=== PATIENT | female | born 1990 | race Two or more races ===

== ENCOUNTER 2018-03-23 15:49 | Outpatient (CLI) | payer OTHER ==
--- NOTE | 2018-03-23 17:46 | Ultrasound Report ---
Procedure Date: 03/23/2018 Accession Number: [id number] / [id number] Procedure: US - OB First Trimester CPT Code: FULL RESULT: EXAM: FIRST TRIMESTER OBSTETRIC ULTRASOUND (Less than 11 weeks) EXAM DATE: 03/23/2018 04:16 PM. CLINICAL HISTORY: POSSIBLE MISSED AB. No heart tones in clinic. LMP: 01/12/2018. COMPARISONS: None. TECHNIQUE: Transabdominal and transvaginal ultrasound examination with static image documentation. CLINICAL DATES: EGA 10 weeks 0 days with DALIA 10/19/2018 based on LMP. ASSESSMENT: Gestational Sac: Single intrauterine. Mean gestational sac diameter: 36 mm = 8 weeks 5 days. Irregular in shape. Embryo: CRL (crown-rump length) 21.3 mm = 8 weeks 5 days. Cardiac activity: Absent . Yolk sac: 3 mm. Amniotic fluid: Not accurately assessed at this gestational age. Early placenta: Not visible at this gestational age. Other: No perigestational fluid collection demonstrated. MATERNAL STRUCTURES: Uterus: Anteverted. Unremarkable. Cervix: Closed. Right Ovary/Adnexa: Unremarkable. The ovary measures 2.5 x 1.4 x 2.0 cm, volume 3.7 cc. Left Ovary/Adnexa: Unremarkable. The ovary measures 2.9 x 2.2 x 1.9 cm, volume 6.3 cc. Free Fluid: None. Other: None. IMPRESSION: 1. Absent cardiac activity consistent with blighted ovum. Based on crown-rump length, ultrasound age 8 weeks 5 days. GERALD The call report notification system was initiated by Dr. Eduardo Allen at 17:04 hrs on 03/23/18. The above findings were discussed with Dr. Janet Dr by Dr. Eduardo Allen at 17:45 hrs on 03/23/18.
== END 2018-03-23 15:50 | disposition home or self-care (01) ==
LOC: DI 15:49
PROVIDERS: ATTEND Obstetrics & Gynecology
DX: Z36.9 Encounter for antenatal screening, unspecified (principal)
CPT/HCPCS: 76801; 76817

== ENCOUNTER 2018-03-24 11:10 | Outpatient (CLI) | payer OTHER ==
[2018-03-24 11:38] LABS: BASOPHILS % (AUTO) 0.5 %; EOSINOPHILS # (AUTO) 0.2 10^3/uL (0.0-0.7); EOSINOPHILS % (AUTO) 3.3 %; HGB - HEMOGLOBIN 12.6 g/dL (12.0-16.0); LYMPHOCYTES # (AUTO) 2.8 10^3/uL (1.5-3.5); LYMPHOCYTES % (AUTO) 39.6 %; MEAN CORPUSCULAR HEMOGLOBIN 30.3 pg (27.0-31.0); MEAN CORPUSCULAR HGB CONC 34.3 g/dL (32.0-36.0); MEAN CORPUSCULAR VOLUME 88.4 fL (81.0-99.0); MEAN PLATELET VOLUME 7.4 fL (7.9-10.8); MONOCYTES # (AUTO) 0.4 10^3/uL (0.0-1.0); MONOCYTES % (AUTO) 5.1 %; NEUTROPHILS # (AUTO) 3.6 10^3/uL (1.5-6.6); NEUTROPHILS % (AUTO) 51.5 %; PLT - PLATELET COUNT 270 10^3/uL (130-450); RED BLOOD COUNT 4.15 10^6/uL (4.20-5.40); RED CELL DISTRIBUTION WIDTH 12.9 % (12.0-15.0); WHITE BLOOD COUNT 7.1 x10^3/uL (4.8-10.8)
[2018-03-24 11:42] LABS: BILIRUBIN,URINE NEGATIVE (NEGATIVE); GLUCOSE, URINE (UA) NEGATIVE (NEGATIVE); KETONES,URINE (UA) NEGATIVE (NEGATIVE); LEUKOCYTE ESTERASE, URINE NEGATIVE (NEGATIVE); NITRITE,URINE NEGATIVE (NEGATIVE); OCCULT BLOOD,URINE NEGATIVE (NEGATIVE); PROTEIN,URINE NEGATIVE (NEGATIVE); UROBILINOGEN,URINE 0.2 (NORMAL) E.U./dL (NORMAL)
[2018-03-24 11:53] LABS: CLARITY,URINE CLEAR (CLEAR)
== END 2018-03-24 11:11 | disposition home or self-care (01) ==
LOC: LAB 11:10
PROVIDERS: ATTEND Obstetrics & Gynecology
DX: Z01.812 Encounter for preprocedural laboratory examination (principal); O02.1 Missed abortion
CPT/HCPCS: 36415; 81003; 85025; 86850; 86900; 86901

== ENCOUNTER 2018-03-25 11:48 | Day surgery (SDC) | payer OTHER ==
[2018-03-25] MEDS ORDERED: LACTATED RINGERS 1,000 ML IV ONE (12:15)
[2018-03-25] MEDS ORDERED: SCOPOLAMINE PATCH TOP ONE (12:42)
[2018-03-25] MEDS ORDERED: KETOROLAC 30 MG/ML VIAL IVP ONE (13:52)
[2018-03-25] MEDS ORDERED: DEXAMETHASONE 4 MG/ML VIAL IVP ONE (13:52)
[2018-03-25] MEDS ORDERED: PROPOFOL 200 MG/20 ML VIAL IVP ONE (13:52)
[2018-03-25] MEDS ORDERED: ONDANSETRON 4 MG/2 ML VIAL IVP ONE (13:52)
[2018-03-25] MEDS ORDERED: MIDAZOLAM 2 MG/2 ML VIAL IVP ONE (13:52)
[2018-03-25] MEDS ORDERED: fentaNYL 100 MCG/2 ML VIAL IVP ONE (13:52)
--- NOTE | 2018-03-25 14:31 | OPERATIVE REPORT ---
Operative Report - General Procedure Date: 03/25/18 Pre-Op Diagnosis: Missed at 9 weeks gestation Procedure Performed: Dilatation and curettage with suction Post Op Diagnosis: Same as above, await pathology report - Procedure Note Primary Surgeon: Darien Gonzales MD, FACOG Anesthesia Technique: General ET tube Pathology: Curettage specimen sent to pathology Estimated Blood Loss (mL): 150 Drain/Tube Type: Other (None) Complications: None.
[2018-03-25 15:19] VITALS: BP 100/55
--- NOTE | 2018-03-25 19:56 | OPERATIVE REPORT ---
DATE OF SERVICE: 03/25/2018 Physician: Darien Gonzales MD PREOPERATIVE DIAGNOSIS: Missed at 9 weeks' gestation. POSTOPERATIVE DIAGNOSIS: Missed at 9 weeks' gestation. Await pathology report. PROCEDURE PERFORMED: Dilatation and curettage with suction. SURGEON: Darien Gonzales MD, FACOG ANESTHESIA: Che Santamaria, certified nurse ent nurse. ANESTHESIA TYPE: General, ET tube placed. ESTIMATED BLOOD LOSS: 150. COMPLICATIONS: None. DRAINS: None. INTRAVENOUS FLUIDS: 500 or less. URINE OUTPUT: The patient voided prior to procedure, none. FINDINGS: Uterus is consistent with 8 weeks' gestation and boggy. There are no adnexal masses. Cervix is closed. TECHNIQUE: Prior to the procedure, I met the patient and her and explained the mechanics of D and C as well as its risks and benefits. The risks include blood loss, transfusion, infection, perforation, scar tissue (Asherman syndrome), and anesthesia reaction. The patient was brought to the OR and placed on the operating table in a supine position. She was then uneventfully induced and intubated. She was moved into a low dorsal lithotomy position on Sean stirrups. She was prepped and draped in a customary sterile fashion. A timeout briefing done per protocol. A weighted speculum was placed in the posterior vagina. The cervix was grasped with a single-tooth tenaculum. The cervical os was stiff and probe measured the depth at 8-9 cm. We began dilating the cervix with a serial application of Hegar probes to Hegar size 9. The cervical tissue was very stiff. We used 2 single-tooth tenaculums to study the cervix during this process. A medium size curette was introduced and a small amount of conceptual products were harvested. Some of these products did fall into the catch bucket and may have been lost. Next, a #9 suction curette was introduced into the cavity and manipulated in an appropriate manner suction applied. It was manipulated in a systematic fashion. At one point, there was a gush of fluid assumed to be the gestational sac passing. After suction curetting, sharp curette was reintroduced in all 4 quadrants, curetted and uterine cry was confirmed. At this point, the procedure was terminated. At the single-tooth tenaculum insertion points, there was a small defect (0.5 cm) which was closed with interrupted stitches 3-0. The uterine cavity was then packed with iodoform gauze. All sponge, needle and instrument counts were confirmed as correct. The patient was uneventfully awakened from general anesthesia and taken to the recovery room in a stable condition. The patient was discharged later in the day. Warning sign and callback instructions were reviewed. The patient was warned that there was not as much conceptual products as expected for a 9-week gestation and she may expel some in the near future. She is instructed to come back to the clinic in 1 week for reevaluation and review of pathology. TD: 03/25/2018 14:59 BASIA
== END 2018-03-25 11:49 | disposition home or self-care (01) ==
LOC: SDS 11:48
PROVIDERS: ATTEND Obstetrics & Gynecology
PROC: 10D17ZZ Extraction of Products of Conception, Retained, Via Natural or Artificial Opening (ICD-10-PCS; principal; 2018-03-25 13:00)
DX: O02.1 Missed abortion (principal)
CPT/HCPCS: 59820; J3490; J7120

== ENCOUNTER 2018-11-09 10:48 | Outpatient (CLI) | payer OTHER ==
[2018-11-09 17:01] LABS: MUDS CUTOFF CONCENTRATIONS CUTOFF CONC BELOW:
[2018-11-09 17:31] LABS: AMPHETAMINE SCREEN,URINE NEGATIVE (NEGATIVE); BENZODIAZEPINES SCREEN, URINE NEGATIVE (NEGATIVE); COCAINE SCREEN URINE NEGATIVE (NEGATIVE); METHADONE SCREEN, URINE NEGATIVE (NEGATIVE); METHAMPHETAMINES SCREEN, URINE NEGATIVE (NEGATIVE); OPIATE SCREEN, URINE NEGATIVE (NEGATIVE); OXYCODONE SCREEN, URINE NEGATIVE (NEGATIVE); PROPOXYPHENE SCREEN, URINE NEGATIVE (NEGATIVE); TRICYCLIC ANTIDEPRESSANT,URINE NEGATIVE (NEGATIVE)
== END 2018-11-09 23:59 | disposition home or self-care (01) ==
LOC: LAB.R 10:48
PROVIDERS: ATTEND Nurse Practitioner Obstetrics & Gynecology
DX: Z36.9 Encounter for antenatal screening, unspecified (principal); Z11.3 Encounter for screening for infections with a predominantly sexual mode of transmission
CPT/HCPCS: 80306; 87491; 87591

== ENCOUNTER 2018-11-09 10:55 | Outpatient (CLI) | payer OTHER ==
[2018-11-09 11:28] LABS: BASOPHILS % (AUTO) 0.5 %; EOSINOPHILS # (AUTO) 0.2 10^3/uL (0.0-0.7); EOSINOPHILS % (AUTO) 1.6 %; HGB - HEMOGLOBIN 12.4 g/dL (12.0-16.0); LYMPHOCYTES # (AUTO) 3.7 10^3/uL (1.5-3.5); LYMPHOCYTES % (AUTO) 39.3 %; MEAN CORPUSCULAR HEMOGLOBIN 28.6 pg (27.0-31.0); MEAN CORPUSCULAR HGB CONC 33.6 g/dL (32.0-36.0); MEAN CORPUSCULAR VOLUME 85.1 fL (81.0-99.0); MEAN PLATELET VOLUME 7.6 fL (7.9-10.8); MONOCYTES # (AUTO) 0.5 10^3/uL (0.0-1.0); MONOCYTES % (AUTO) 5.6 %; PLT - PLATELET COUNT 291 10^3/uL (130-450); RED BLOOD COUNT 4.34 10^6/uL (4.20-5.40); RED CELL DISTRIBUTION WIDTH 13.7 % (12.0-15.0); WHITE BLOOD COUNT 9.5 x10^3/uL (4.8-10.8)
[2018-11-09 11:28] LABS: BILIRUBIN,URINE NEGATIVE (NEGATIVE); GLUCOSE, URINE (UA) NEGATIVE (NEGATIVE); KETONES,URINE (UA) NEGATIVE (NEGATIVE); LEUKOCYTE ESTERASE, URINE NEGATIVE (NEGATIVE); NITRITE,URINE NEGATIVE (NEGATIVE); OCCULT BLOOD,URINE NEGATIVE (NEGATIVE); PROTEIN,URINE NEGATIVE (NEGATIVE); UROBILINOGEN,URINE 0.2 (NORMAL) E.U./dL (NORMAL)
[2018-11-09 11:38] LABS: CREATININE 0.7 mg/dL (0.4-1.0); URIC ACID 5.2 mg/dL (2.6-7.2)
[2018-11-09 11:40] LABS: BACTERIA,URINE Rare /HPF (None Seen); CLARITY,URINE HAZY (CLEAR); MUCUS,URINE Few Strands; RBC,URINE 0-5 /HPF (0-5); SQUAMOUS EPITHELIAL CELL,UR MOD Squamous (<= Few)
[2018-11-10 14:15] LABS: HEPATITIS B SURFACE ANTIGEN NON-REACTIVE (NON-REACTIVE); HEPATITIS C ANTIBODY NON-REACTIVE (NON-REACTIVE)
[2018-11-10 15:11] LABS: HIV AG/AB 4TH GEN NON-REACTIVE (NON-REACTIVE)
== END 2018-11-09 10:56 | disposition home or self-care (01) ==
LOC: LAB 10:55
PROVIDERS: ATTEND Nurse Practitioner Obstetrics & Gynecology
DX: Z36.9 Encounter for antenatal screening, unspecified (principal); O99.210 Obesity complicating pregnancy, unspecified trimester; Z11.3 Encounter for screening for infections with a predominantly sexual mode of transmission
CPT/HCPCS: 36415; 80306; 81001; 81599; 82565; 83615; 84450; 84550; 85025; 86592; 86762; 86803; 86850; 86900; 86901; 87086; 87340; 87389; 87491; 87591

== ENCOUNTER 2018-11-16 11:24 | Outpatient (CLI) | payer OTHER ==
--- NOTE | 2018-11-16 15:44 | Ultrasound Report ---
Reason: TEST POSITIVE Procedure Date: 11/16/2018 Accession Number: [id number] / [id number] Procedure: US - OB First Trimester CPT Code: FULL RESULT: EXAM: FIRST TRIMESTER OBSTETRIC ULTRASOUND (LESS THAN 11 WEEKS). EXAM DATE: 11/16/2018 12:22 PM. CLINICAL HISTORY: test positive. LMP: 09/20/2018. COMPARISONS: OB FIRST TRIMESTER 03/23/2018 4:16 PM. TECHNIQUE: Transabdominal and transvaginal ultrasound examination with static image documentation. CLINICAL DATES: EGA 8 weeks 1 day with DALIA 06/27/2019 based on last menstrual period. ASSESSMENT: Gestational Sac: Single intrauterine. Mean gestational sac diameter: 26 mm = 7 weeks 2 days. Embryo: CRL (crown-rump length) 10.4 mm = 7 weeks 1 day. Cardiac activity: 136 beats per minute. Yolk sac: 3.8 mm. Amniotic fluid: Not accurately assessed at this gestational age. Early placenta: Not visible at this gestational age. Other: No perigestational fluid collection demonstrated. MATERNAL STRUCTURES: Uterus: Anteverted/Retroverted. Unremarkable. Cervix: Closed. Right Ovary/Adnexa: The ovary measures 4.2 x 2.1 x 2.3 cm, volume 10.6 cc. Contains a 1.8 cm cyst superior pole. Left Ovary/Adnexa: The ovary measures 2.5 x 1.7 x 2.0 cm, volume 4.4 cc. Unremarkable. Free Fluid: None. Other: None. IMPRESSION: 1. Single viable intrauterine at EGA 7 weeks 1 day with DALIA 07/04/2019 based on crown-rump length, which is 7 days delayed with clinical dates based on LMP. 2. Assigned dating is DALIA 7 weeks 1 day based on current ultrasound. RADIA
== END 2018-11-16 11:25 | disposition home or self-care (01) ==
LOC: DI 11:24
PROVIDERS: ATTEND Nurse Practitioner Obstetrics & Gynecology
DX: Z32.01 Encounter for pregnancy test, result positive (principal); Z3A.01 Less than 8 weeks gestation of pregnancy
CPT/HCPCS: 76801

== ENCOUNTER 2019-02-03 08:36 | Outpatient (CLI) | payer OTHER ==
--- NOTE | 2019-02-03 18:56 | Ultrasound Report ---
Reason: ENCTR FOR OTHER SPECIFIED SCREENING Procedure Date: 02/03/2019 Accession Number: [id number] / [id number] Procedure: US - OB Detailed Eval CPT Code: FULL RESULT: EXAM: COMPLETE OBSTETRICAL ULTRASOUND EXAM DATE: 02/03/2019 11:00 AM. CLINICAL HISTORY: anatomic survey. COMPARISON: 11/16/2018. TECHNIQUE: Real-time sonographic evaluation of the fetus performed by the life scientists. Multiple service support representative static images were saved for review. Additional transvaginal imaging to more accurately evaluate cervical length/placental position/etc. DATING: Established EGA 18 weeks 3 days with DALIA 07/04/2019 based on first ultrasound. EGA 18 weeks 5 days with DALIA 07/02/2019 based on the current ultrasound. GENERAL EVALUATION Chang . Cardiac activity: 155 bpm. movement: Present Presentation: Variable Placenta: Posterior position. No evidence for previa. Umbilical cord: 3 vessel cord. Central placental cord origin. Amniotic fluid: Subjectively normal. MVP 4.7 cm. BIOMETRY Bi-Parietal Diameter (BPD): 4.1 cm, 18 weeks 2 days Head Circumference (HC): 15.4 cm, 18 weeks 2 days Abdominal Circumference (AC): 13.9 cm, 19 weeks 1 day Femur Length (FL): 2.9 cm, 18 weeks 6 days Estimated Weight: 269 g, 24th percentile ANATOMY The intracranial structures, profile, face/nose/lips, spine, stomach, abdominal wall and cord insertion, diaphragm, kidneys, bladder, and extremities were visualized and demonstrate no abnormality. 4 chamber heart and outflow tracts not well seen today. MATERNAL STRUCTURES Uterus: Unremarkable. Cervix: Long and closed. Transabdominal length 5.5 cm. Right ovary/adnexa: Unremarkable. Left ovary/adnexa: Unremarkable. Free fluid: None. IMPRESSION: 1. Chang intrauterine with gestational age 18 weeks 3 days based on first ultrasound of 07/04/2019. 2. Estimated weight is within expected limits for assigned dating. 3. Normal anatomic survey except for cardiac anatomy which is not well seen. Suggest follow-up targeted ultrasound of the heart in 1-2 weeks.. RADIA
== END 2019-02-03 08:37 | disposition home or self-care (01) ==
LOC: DI 08:36
PROVIDERS: ATTEND Nurse Practitioner Obstetrics & Gynecology
DX: Z36.89 Encounter for other specified antenatal screening (principal)
CPT/HCPCS: 76811

== ENCOUNTER 2019-02-22 08:42 | Outpatient (CLI) | payer OTHER ==
--- NOTE | 2019-02-26 22:08 | Ultrasound Report ---
Reason: ENCOUTER FOR OTHER SPECIFIED SCREENING Procedure Date: 02/22/2019 Accession Number: [id number] / [id number] Procedure: US - OB F/U or Repeat CPT Code: FULL RESULT: EXAM: FOLLOW-UP OBSTETRICAL ULTRASOUND EXAM DATE: 02/22/2019 09:20 AM. CLINICAL HISTORY: ENCOUNTER FOR OTHER SPECIFIED SCREENING. cardiac anatomy not well seen on second trimester screening ultrasound. Targeted follow-up requested. COMPARISON: 02/22/2019 9:18 AM OB DETAILED EVAL 02/03/2019 8:54 AM. TECHNIQUE: Real-time sonographic evaluation of the fetus performed by the dehairer. Multiple player services representative static images were saved for review. DATING: Established EGA 22 weeks, 1 day with DALIA 06/27/2019 based on assigned dating. GENERAL EVALUATION Chang . Cardiac activity: 148 bpm. movement: Visualized. Presentation: Breech Placenta: Posterior position. Amniotic fluid: Normal. CHRISTIANO 12.8 cm. MVP 4.4 cm. ANATOMY Four-chamber view of heart, right and left ventricular outflow tracts appeared within normal limits. MATERNAL STRUCTURES Normal 5.6 cm cervical length. IMPRESSION: 1. Chang live intrauterine with gestational age 22 weeks, 1 day based on assigned dating. 2. Normal exam. Targeted follow-up of heart appears unremarkable. This completes survey. No sonographic evidence for anatomic abnormality. RADIA
== END 2019-02-22 08:43 | disposition home or self-care (01) ==
LOC: DI 08:42
PROVIDERS: ATTEND Nurse Practitioner Obstetrics & Gynecology
DX: Z36.89 Encounter for other specified antenatal screening (principal)
CPT/HCPCS: 76816

== ENCOUNTER 2019-05-04 11:26 | Outpatient (CLI) | payer OTHER ==
--- NOTE | 2019-05-05 13:06 | Ultrasound Report ---
Reason: UTERINE SIZE DEATE DISCREPANCY,THIRD TRIMESTER Procedure Date: 05/04/2019 Accession Number: [id number] / [id number] Procedure: US - OB F/U or Repeat CPT Code: FULL RESULT: EXAM: FOLLOW-UP OBSTETRICAL ULTRASOUND EXAM DATE: 05/04/2019 11:58 AM. CLINICAL HISTORY: Uterine size/date discrepancy, third trimester. COMPARISON: OB DETAILED EVAL 02/03/2019 8:54 AM OB FIRST TRIMESTER 11/16/2018 11:39 AM. TECHNIQUE: Real-time sonographic evaluation of the fetus performed by the senior center manager. Multiple branch customer service representative static images were saved for review. DATING: Established EGA 32 weeks 2 days with DALIA 06/27/2019 based on provider stated working due date. EGA 31 weeks 2 days with DALIA 07/04/2019 based on first ultrasound. EGA 31 weeks 5 days with DALIA 07/02/2019 based on the current ultrasound. GENERAL EVALUATION Chang . Cardiac activity: 138 bpm. movement: Visualized. Presentation: Cephalic. Placenta: Posterior position. Amniotic fluid: Normal. CHRISTIANO 15.7 cm. MVP 5.0 cm. BIOMETRY Bi-Parietal Diameter (BPD): 7.7 cm, 31 weeks 0 days. Head Circumference (HC): 28.3 cm, 31 weeks 0 days. Abdominal Circumference (AC): 27.9 cm, 32 weeks 0 days. Femur Length (FL): 6.3 cm, 32 weeks 3 days. Estimated Weight: 1867 g, 29th percentile for 32 weeks 2 days. MATERNAL STRUCTURES Maternal cervix is long and closed, 4.2 cm transabdominally. IMPRESSION: 1. Chang live intrauterine with gestational age 32 weeks 2 days based on submitted obstetric provider working due date. 2. Estimated weight is within expected limits for assigned dating. 3. Normal interval growth compared to 11/16/2018 as well as 02/03/2019. Please note discrepant dating between the initial ultrasound and LMP. By standard convention this gestation would have been assigned an estimated due date of 07/04/2019 which closely tracks with the growth over time. GERALD
== END 2019-05-04 11:27 | disposition home or self-care (01) ==
LOC: DI 11:26
PROVIDERS: ATTEND Nurse Practitioner Obstetrics & Gynecology
DX: O26.843 Uterine size-date discrepancy, third trimester (principal); Z3A.32 32 weeks gestation of pregnancy
CPT/HCPCS: 76816

== ENCOUNTER 2019-05-31 08:00 | Outpatient (CLI) | payer OTHER | END 2019-05-31 23:59 | disposition home or self-care (01) | LOC: LAB.R 08:00 | PROVIDERS: ATTEND Obstetrics & Gynecology | DX: Z34.80 Encounter for supervision of other normal pregnancy, unspecified trimester (principal) | CPT/HCPCS: 87797 ==

== ENCOUNTER 2019-06-06 11:18 | Outpatient (CLI) | payer OTHER ==
--- NOTE | 2019-06-07 13:34 | Ultrasound Report ---
Reason: UTERINE SIZE DATE DISCREPANCY THIRD TRIMESTER Procedure Date: 06/06/2019 Accession Number: [id number] / [id number] Procedure: US - OB F/U or Repeat CPT Code: FULL RESULT: EXAM: FOLLOW-UP OBSTETRICAL ULTRASOUND EXAM DATE: 06/06/2019 12:26 PM. CLINICAL HISTORY: Uterine size date discrepancy third trimester. COMPARISON: OB F/U OR REPEAT 05/04/2019 11:58 AM. TECHNIQUE: Real-time sonographic evaluation of the fetus performed by the call out clerk. Transabdominal scanning only. Multiple patient support representative static images were saved for review. DATING: Established EGA 37 weeks 0 days with DALIA 06/27/2019 based on LMP. EGA 36 weeks 0 days with DALIA 07/04/2019 based on prior ultrasound. EGA 36 weeks 4 days with DALIA 06/30/2019 based on the current ultrasound. GENERAL EVALUATION Chang . Cardiac activity: 138 bpm. movement: Visualized. Presentation: Cephalic. Placenta: Posterior position. Amniotic fluid: Normal. CHRISTIANO 13.4 cm. MVP 4.8 cm. BIOMETRY Bi-Parietal Diameter (BPD): 9.0 cm, 36 weeks 2 days Head Circumference (HC): 31.4 cm, 35 weeks 2 days Abdominal Circumference (AC): 33.0 cm, 36 weeks 6 days Femur Length (FL): 7.4 cm, 37 weeks 4 days Estimated Weight: 3036 g, 50.8 percentile . ANATOMY Limited anatomy evaluation. MATERNAL STRUCTURES Limited evaluation. IMPRESSION: 1. Chang live intrauterine with gestational age 36 weeks 4 days based on current ultrasound. 2. Estimated weight is within expected limits for assigned dating. 3. Normal interval growth compared to 11/16/2018. RADIA
== END 2019-06-06 11:19 | disposition home or self-care (01) ==
LOC: DI 11:18
PROVIDERS: ATTEND Obstetrics & Gynecology
DX: O26.843 Uterine size-date discrepancy, third trimester (principal); Z3A.36 36 weeks gestation of pregnancy
CPT/HCPCS: 76816

== ENCOUNTER 2019-06-10 17:32 | Outpatient (CLI) | payer OTHER ==
[2019-06-10 18:09] VITALS: BP 119/84
[2019-06-10 18:20] LABS: BASOPHILS % (AUTO) 0.4 %; EOSINOPHILS # (AUTO) 0.1 10^3/uL (0.0-0.7); EOSINOPHILS % (AUTO) 1.5 %; HGB - HEMOGLOBIN 11.5 g/dL (12.0-16.0); LYMPHOCYTES # (AUTO) 2.7 10^3/uL (1.5-3.5); LYMPHOCYTES % (AUTO) 33.1 %; MEAN CORPUSCULAR HEMOGLOBIN 28.5 pg (27.0-31.0); MEAN CORPUSCULAR VOLUME 86.1 fL (81.0-99.0); MONOCYTES # (AUTO) 0.6 10^3/uL (0.0-1.0); MONOCYTES % (AUTO) 7.4 %; NEUTROPHILS # (AUTO) 4.7 10^3/uL (1.5-6.6); NEUTROPHILS % (AUTO) 57.2 %; PLT - PLATELET COUNT 254 10^3/uL (130-450); RED BLOOD COUNT 4.04 10^6/uL (4.20-5.40); RED CELL DISTRIBUTION WIDTH 13.6 % (12.0-15.0); WHITE BLOOD COUNT 8.2 x10^3/uL (4.8-10.8)
[2019-06-10 18:40] LABS: ALBUMIN 2.8 g/dL (3.2-5.5); ALKALINE PHOSPHATASE 54 IU/L (42-121); ALT ALANINE AMINOTRANSFERASE 13 IU/L (10-60); AST ASPARTATE AMINOTRANSFERASE 18 IU/L (10-42); BILIRUBIN,TOTAL 0.3 mg/dL (0.2-1.0); CREATININE 0.5 mg/dL (0.4-1.0); GFR - MDRD 147 (>89); TOTAL PROTEIN 6.3 g/dL (6.7-8.2)
[2019-06-10 18:42] LABS: BILIRUBIN,DIRECT < 0.1 mg/dL (0.1-0.5)
[2019-06-10 18:48] LABS: CREATININE,URINE 47.5 mg/dL
[2019-06-10 18:49] LABS: TOTAL PROTEIN,URINE TIMED < 6 mg/dL
--- NOTE | 2019-06-13 23:33 | PROCEDURE REPORT ---
- HPI Diagnosis/Indication for NST: Other (Tamiko is a 28-year-old G4, P2 at 37 weeks and 4 days estimated gestational age who presents with a headache and ankle swelling. Denies vision change/right upper quadrant tenderness. Has no prior history of gestational hypertension this . Endorses movement. Denies loss of fluid/vaginal bleeding/contractions.) Current EDU 06/27/19 Gestation 37 Weeks and 4 Days 4 Para 2 Vital Signs Temperature 97.9 F 06/10/19 17:55 Heart Rate 89 06/10/19 17:55 Respiratory Rate 18 06/10/19 17:55 Blood Pressure 116/75 06/10/19 17:55 O2 Saturation 98 06/10/19 17:55 Temperature 97.9 F 06/10/19 17:55 Heart Rate 95 06/10/19 18:07 Respiratory Rate 18 06/10/19 18:07 Blood Pressure 119/84 H 06/10/19 18:07 O2 Saturation 99 06/10/19 18:07 - NST Procedure EFM 135 moderate variability 15 x 15 accelerations no decelerations [place] irritable - Results and Plan Findings/Impression: 28-year-old G4, P2 at 37 weeks 4 days estimated gestational age with new onset headache and lower extremity edema. Denies vision change in right upper quadrant tenderness. PIH labs were within normal limits. Negative urine protein. Blood pressure is within normal limits on repeat assessments. -No evidence of preeclampsia -No evidence of gestational hypertension. Patient was provided with Tylenol for headache relief. Reassured her regarding ruling out of preeclampsia/gestational hypertension. Reviewed warning signs and indications for return to labor and delivery. Category 1 tracing Discharge to home with follow-up with routine OB care. A total of 30 minutes was spent with this patient of which more than 50% was spent spent in [id number] counseling case manager.
== END 2019-06-10 19:00 | disposition home or self-care (01) ==
LOC: WFO 17:32 → FBP 17:35 → WFO 19:00
PROVIDERS: ATTEND Obstetrics & Gynecology
DX: O12.03 Gestational edema, third trimester (principal); R51 Headache; Z3A.37 37 weeks gestation of pregnancy
CPT/HCPCS: 36415; 80076; 82565; 82570; 84156; 85025; 99213

== ENCOUNTER 2019-06-24 13:52 | Inpatient (IN) | payer OTHER ==
[2019-06-24] MEDS ORDERED: miSOPROStol 100 MCG TABLET BC SCH (14:00)
[2019-06-24] MEDS ORDERED: ONDANSETRON 4 MG/2 ML VIAL IVP PRN ×2 (14:01→18:16)
[2019-06-24] MEDS ORDERED: SODIUM CHLORIDE FLUSH 0.9% 10 ML SYRINGE IVP PRN (14:01)
[2019-06-24 14:52] LABS: BASOPHILS % (AUTO) 0.4 %; EOSINOPHILS # (AUTO) 0.1 10^3/uL (0.0-0.7); EOSINOPHILS % (AUTO) 1.2 %; HGB - HEMOGLOBIN 11.6 g/dL (12.0-16.0); LYMPHOCYTES # (AUTO) 2.4 10^3/uL (1.5-3.5); LYMPHOCYTES % (AUTO) 26.5 %; MEAN CORPUSCULAR VOLUME 87.8 fL (81.0-99.0); MEAN PLATELET VOLUME 10.3 fL (7.9-10.8); MONOCYTES # (AUTO) 0.8 10^3/uL (0.0-1.0); MONOCYTES % (AUTO) 8.3 %; NEUTROPHILS # (AUTO) 5.7 10^3/uL (1.5-6.6); NEUTROPHILS % (AUTO) 63.2 %; PLT - PLATELET COUNT 241 10^3/uL (130-450); RED CELL DISTRIBUTION WIDTH 14.2 % (12.0-15.0); WHITE BLOOD COUNT 9.1 x10^3/uL (4.8-10.8)
[2019-06-24] MEDS ORDERED: LACTATED RINGERS 1,000 ML IV SCH (15:00)
--- NOTE | 2019-06-24 16:24 | PROVIDER PROGRESS NOTE ---
Labor Progress Note - Uterine Monitoring Uterine Monitoring Mode: positive: External toco Contraction Frequency (min/apart): 4-6 Contraction Intensity: positive: Mild to moderate Uterine Resting Tone: positive: Soft - Monitoring Monitor Mode: positive: External ultrasound Heart Rate Baseline: 140 Accelerations: positive: Present, 15x15 Decelerations: positive: None Strip Review: positive: Category I - Vaginal Exam Dilation (in cm): 4-5 Effacement (%): 80 Station: 0 Cervical Position: Midposition - Labor Progress Note Labor Progress Note/Additional Text: S: Laying comfortably in bed and starting to feel some of the contractions. She is feeling slightly nervous but is anxious to have a baby. is supportive at the bedside. O: FHR baseline 140s, moderate variability, + accels, no decels Contractions palpate mild every 4-6 minutes with soft resting tone AROM moderate amount of clear fluid SVE 4-5/80/0, midposition, soft, vertex A: 28yo @ 39.4wks gestation by 7.1wks gestation Elective induction of labor- s/p 50mcg BC misoprostol FHR Category I P: Continuous monitoring D/c misoprostol prior to next dose Plan initiation of pitocin with titration per protocol at 1915 if pt not peri adequately and consistently Reviewed plan of care with patient and labor and delivery mgr who verbalized understanding and are in agreement with above plan. They deny further questions or concerns at this time.
--- NOTE | 2019-06-24 16:38 | HISTORY & PHYSICAL EXAMINATION ---
Admit History - Visit Reason Visit Reason: Other - : 4 Parity: 2 Premature: 1 Ectopic: 0 : 1 Care: positive: [facility] Risk/History: positive: None Complications This : positive: None Smoking Status: Never smoker - Mother's Labs Mother's Blood Type: positive: A Mother's RH: positive: Positive GBS: positive: Group B Step Negative Rubella Status: positive: Immune Meds/Allgy - Home Medications Home Medications: Ambulatory Orders Medication Instructions Recorded Confirmed Multivitamin [Multivitamins] 1 tab DAILY 12/14/14 12/21/14 Hyoscyamine Sulfate [Levsin-Sl] 0.125 mg SL Q6H PRN #10 tab.subl 07/08/16 - Allergies Allergies/Adverse Reactions: Allergies Allergy/AdvReac Type Severity Reaction Status Date / Time No Known Drug Allergies Allergy Verified 12/21/14 18:36 Review of Systems - Constitutional Constitutional: denies: Fatigue, Fever, Chills, Malaise - Eyes Eyes: denies: Blurred vision, Spots in vision, Dipolpia - Cardiovascular Cariovascular: denies: Chest pain, Edema, Lightheadedness - Respiratory Respiratory: denies: SOB at rest - Gastrointestinal Gastrointestinal: denies: Constipation, Diarrhea, Change in bowel habits, Naus ea, Vomiting - Integumentary Integumentary: denies: Rash, Pruritis - Neurological Neurological: denies: Headache Physical - Abdominal Exam Vital Signs: Temp Pulse Resp BP Pulse Ox 36.8 C 96 17 124/57 L 98 06/24/19 14:30 06/24/19 14:30 06/24/19 14:30 06/24/19 14:30 06/24/19 14:30 Contraction Frequency (min/apart): 4-6 Contraction Intensity: positive: Mild Uterine Resting Tone: positive: Soft - Monitoring Heart Rate Baseline: 140 Strip Review: positive: Category I - Presentation Presentation: positive: Vertex - Vaginal Exam Membranes: positive: Membranes ruptured Dilation (in cm): 4-5 Effacement (%): 80 Station: positive: 0 Cervical Position: positive: Midposition - Speculum Exam Speculum Exam Performed: positive: No Plan for Labor - Plan For Labor I expect patient to be DC'd or transferred within 96 hours.: Yes Plan for Labor: HPI: Tamiko is a 28yo @ 39.4wks gestation by LMP c/w 7.1wk U/S. She presented to [facility] on 06/24/2019 at 1400 for elective induction of labor. She has been a patient of [facility] through the duration of her which has remained uncomplicated. She denies vaginal bleeding or leakage of fluid. She reports positive movement. Dating criteria: LMP: 09/20/2018 Initial ultrasound at 7.1wks gestation - agrees Serial Exams: agree OB History: G1: 08/12/2009 @ 35wks gestation secondary to PPROM; epidural, , 8hr labor, female, 4lbs 11oz G2: 06/02/2015 @ 38wks, epidural, forceps secondary to distress, , female, 6lbs G3: SAB; D&C <12wks G4: Current Medications: PNV Allergies: NKDA PMHx: Surgical Hx: Social Hx: Family Hx: Ultrasounds: Initial ultrasound @ 7.1wks differs 7 days from LMP. DALIA based on LMP. 02/03/2019 FAS WNL with the exception of poor visualization of cardiac anatomy. Posterior placenta, no previa. 3VC 02/22/2019 f/u WNL 05/04/2019 Growth and CHRISTIANO WNL; EFW 29th percentile labs: Blood type A positive, antibody neg Hgb 11.6; Hct 35.1 PLT 241 Rubella immune RPR negative HIV neg Hep B neg Hep C neg GC/CT neg 1 hour GTT 135 GBS neg Tdap 04/02/2019 Physical Exam: Normocephalic, atraumatic PERRLA Heart RRR w/o M/G/R Lungs CTAB Abdomen gravid, soft, nontender EFW 3000g SVE 4-5/80/0, vertex Bilateral LE's no edema Assessment: 28yo @ 39.4wks gestation by LMP c/w 7.1wks gestation Elective IOL FHR Category I Plan: Continuous monitoring D/c misoprostol and initiation pitocin with titration per protocol 4 hours after last dosage was administered (approximately 1915) Encouraged ambulation and position changes Epidural per maternal request Anticipate spontaneous vaginal delivery
[2019-06-24] MEDS ORDERED: SODIUM CHLORIDE FLUSH 0.9% 10 ML SYRINGE IVP SCH (17:00)
[2019-06-24] MEDS ORDERED: OXYTOCIN/DEXTROSE 5 % 30 UNIT/500 ML BAG IV ONE (17:02)
[2019-06-24] MEDS ORDERED: ROPIVACAINE 0.2% 200 MG/100 ML BAG EP ONE (17:34)
[2019-06-24] MEDS ORDERED: LIDOCAINE 2% 10 ML MDV ONE (18:13)
[2019-06-24] MEDS ORDERED: diphenhydrAMINE INJ 50 MG/ML VIAL IVP PRN (18:16)
[2019-06-24] MEDS ORDERED: METOCLOPRAMIDE 10 MG/2 ML VIAL IVP PRN (18:16)
[2019-06-24] MEDS ORDERED: ROPIVACAINE 0.2% 200 MG/100 ML BAG EP PRN (18:16)
[2019-06-24] MEDS ORDERED: ePHEDrine 50 MG/ML VIAL IVP PRN (18:16)
[2019-06-24] MEDS ORDERED: LACTATED RINGERS 500 ML IV ONE (18:16)
[2019-06-24] MEDS ORDERED: NALBUPHINE 10 MG/ML AMP IVP PRN (18:16)
[2019-06-24] MEDS ORDERED: NALOXONE 0.4 MG/ML VIAL IVP PRN (18:16)
--- NOTE | 2019-06-24 18:20 | ANESTHESIA ---
Pre-Anesthesia VS, & Labs - Diagnosis active labor - Procedure labor epidural Vital Signs: Temp Pulse Resp BP Pulse Ox 36.8 C 96 17 124/57 L 98 06/24/19 14:30 06/24/19 14:30 06/24/19 14:30 06/24/19 14:30 06/24/19 14:30 Height 5 ft 3 in Weight (kg) 111.13 kg Body Mass Index 31.8 - NPO Other (clears from now until delivery) - Is Patient ?: Yes - Lab Results Current Lab Results: Laboratory Tests 06/24/19 14:36: WBC 9.1, RBC 4.00 L, Hgb 11.6 L, Hct 35.1 L, MCV 87.8, MCH 29.0, MCHC 33.0, RDW 14.2, Plt Count 241, MPV 10.3, Neut # (Auto) 5.7, Lymph # (Auto) 2.4, [place] # (Auto) 0.8, Eos # (Auto) 0.1, Baso # (Auto) 0.0, Absolute Nucleated RBC 0.00, Nucleated RBC % 0.0 Fish Bones: 06/24/19 14:36 Home Medications and Allergies Active Medications Lactated Ringer's (Lr) 1,000 mls @ 100 mls/hr IV .Q10H [facility] Misoprostol (Cytotec) 50 mcg BC Q4H [facility] Last Admin: 06/24/19 15:04 Dose: 50 mcg Ondansetron HCl (Zofran Inj) 4 mg IVP Q4HR PRN PRN Reason: Nausea / Vomiting Sodium Chloride (Normal Saline Flush 0.9%) 10 ml IVP 0100,0900,1700 [facility] Sodium Chloride (Normal Saline Flush 0.9%) 10 ml IVP PRN PRN PRN Reason: NEEDED PER PROVIDER ORDERS Multivitamin [Multivitamins] 1 tab DAILY 12/14/14 Allergies/Adverse Reactions: Allergies Allergy/AdvReac Type Severity Reaction Status Date / Time No Known Drug Allergies Allergy Verified 12/21/14 18:36 Anes History & Medical History - Anesthetic History Anesthesia Complications: reports: No previous complications - Medical History Smoking Status: Never smoker - Obstetrical History : 4 Parity: 2 Events: positive: None Complications: positive: None Exam General: Alert Dental: WNL Mouth Opening: Greater than 4 Fingerbreadths Neck Mobility: Normal Mallampati classification: I Thyromental Distance: greater than 6 cm Respiratory: Lungs clear Cardiovascular: Regular rate Plan Anesthesia Type: Epidural Consent for Procedure(s) Verified and Reviewed: Yes Code Status: Attempt Resuscitation ASA classification: 2-Mild systemic disease Is this case an emergency?: No
[2019-06-24] MEDS ORDERED: OXYTOCIN/DEXTROSE 5 % 30 UNIT/500 ML BAG IV PRN (18:40)
[2019-06-24] MEDS ORDERED: WITCH HAZEL/GLYCERIN 1 PAD TOP PRN (18:54)
[2019-06-24] MEDS ORDERED: HYDROCORTISONE 1% CREAM 28 GM TUBE PR PRN (18:54)
--- NOTE | 2019-06-24 19:21 | DELIVERY NOTE ---
Delivery Note - Labor Labor: positive: Induced by ARM - Infant Delivery Method Delivery Method: positive: Spontaneous vaginal delivery - Presentation Presentation: positive: Vertex, RAMO - left occiput anterior - Nuchal Cord Nuchal Cord: positive: None - Amniotic Fluid Description Amniotic Fluid Description: positive: Clear - Episiotomy Type Episiotomy Type: positive: None - Laceration Laceration: positive: None - Delivery Outcome Delivery Outcome: positive: Livebirth - [place] : positive: Placed in direct skin contact with mother, Bulb syringe, Stimulated, Warmed, Stuart used sex: positive: Male - Cord Cord: positive: 3 vessels - Placenta Placenta: positive: Intact, Spontaneous - Estimated Blood Loss Estimated Blood Loss (in cc): 250 - Post Delivery Events Post Delivery Events: positive: No post delivery events - Delivery Comments (Free Text/Narrative) Delivery Comments (Free Text/Narrative): Labor: This 28yo @ 39.4wks gestation by LMP presented on 06/24/2019 at 1400 for elective induction of labor. Patient received 1 dose of 50mcg BC misoprostol for pre-induction cervical ripening. AROM occurred at 1616 and was noted to be a moderate amount of clear fluid. Epidural placed per maternal request. At approximately 1816 the patient was noted to have a deep, prolonged late deceleration with difficulty tracing heart tones. IV fluid bolus started, O2 administered to the patient, and patient rotated to left side lying position. FSE placed at 1826 and patient was noted to be 9.5/100/0, vertex. After a brief period of recovery with FHT to 150bpm, at 1829 a prolonged late deceleration occurred and patient was rotated to hands and knees position. Patient began to push with direction and was noted to be completed at 1832. : Normal of viable male on 06/24/2019 at 1837. No nuchal cord. The was placed on maternal abdomen, stimulated, dried, and placed skin to skin. 's were 7/9 at 1 and 5 min respectively. The umbilical cord was allowed to pulsate x 60 seconds at which time it was doubly clamped by CNM and cut by FOB. Pitocin administered via IV for hemostasis. Cord blood was obtained. 3VC. EBL 250mL. Fourth stage: Uterine fundus firm and there is no excessive bleeding. The perineum, vagina, and cervix were inspected and found to be intact. Family bonding well. Both mother and baby were left in stable condition.
[2019-06-24] MEDS: DOCUSATE SODIUM 100 MG CAPSULE PO SCH (23:55)
[2019-06-24] MEDS: ACETAMINOPHEN 500 MG TABLET PO SCH (23:56)
[2019-06-24] MEDS: IBUPROFEN 800 MG TABLET PO SCH (23:56)
[2019-06-25] MEDS: IBUPROFEN 800 MG TABLET PO SCH ×2 (06:23→14:37)
[2019-06-25] MEDS: DOCUSATE SODIUM 100 MG CAPSULE PO SCH (08:39)
[2019-06-25] MEDS: ACETAMINOPHEN 500 MG TABLET PO SCH ×2 (08:39→16:59)
[2019-06-25 15:54] VITALS: BP 125/77
--- NOTE | 2019-06-25 17:26 | PROVIDER PROGRESS NOTE ---
Subjective - Subjective Subjective: FINAL PROGRESS NOTE: S: Bonding well with baby. without difficulty. Pain well controlled with oral medications. Bleeding decreased and is light. supportive at the bedside. They strongly desire to go home at 24 hours after delivery. They have good family support at home. O: Bp 125/77, HR 78, T 37.1, RR 18 Heart RRR w/o M/G/R, lungs CTAB, abdomen soft and nontender with fundus firm at U-1, bilateral LE's no edema. A: 28yo -->P3 PPD#1 s/p TSVD of viable male Perineum intact P: Reviewed pp self care and warning s/sx and when to present. Advised continuation of PNV while . Advised OTC ibuprofen and tylenol for pain management. Return to [facility] for visit with myself in 3 weeks or sooner PRN. Pt and verbalized understanding and agrees to above plan. She denies further questions or concerns at this time. Objective - Vital Signs/Intake & Output Vital Signs: Vital Signs x48h Temp Pulse Resp BP Pulse Ox 06/25/19 15:53 37.1 C 78 18 125/77 95 Intake & Output: Intake & Output 06/22/19 06/23/19 06/24/19 06/25/19 23:59 23:59 23:59 23:59 Intake Total 1950 Output Total 50 825 Balance 1900 -825 - Lab Results Fish Bones: 06/24/19 14:36
--- NOTE | 2019-06-25 17:35 | Discharge Plan ---
Discharge Plan Problem Reviewed?: Yes Disposition: Home, Self Care Condition: Good Diet: Regular Activity Restrictions: No Restrictions Shower Restrictions: No Driving Restrictions: No Weight Bearing: Full Weight No Smoking: If you smoke, Please STOP! Call for help. Follow-up with: Norma Davis CNM, ARNP [Provider Admit Priv/Credential] -
--- NOTE | 2019-06-25 19:28 | Labor Flowsheet ---
Labor Flowsheet Datetime Report Generated by CPN: 06/25/2019 19:28 Datetime: 06/25/2019 15:23 VITAL SIGNS NBP Sys/Sade/Mean (mmHg): 125 : 77 : 88 Pulse: 79 LaborFlag: Labor Datetime: 06/25/2019 11:50 SpO2 (%): 99 Datetime: 06/24/2019 19:45 Membranes Ruptured Date/Time: 06/24/2019 16:16 Datetime: 06/24/2019 18:37 Comments: prolonged decel-bradycardia, see flowsheet for interventions, RT in room, multiple staff members, CNM, and peds on the way Datetime: 06/24/2019 18:32 VAGINAL EXAM Dilatation (cm): 10.0 Datetime: 06/24/2019 18:31 Decelerations: Prolonged STAGE 2 Pushing: Coached on Pushing Pushing Position: Pushing with Contractions Pushing Progress: Descent with Pushing Datetime: 06/24/2019 18:30 COMMUNICATION Communication: Provider at Bedside Communication Comments: lalitha jimena cnm at beside. Datetime: 06/24/2019 18:28 Patient Position/Activity: Hands-Knees Datetime: 06/24/2019 18:27 Monitor Interventions for UA: [place] Adjusted Contraction Comments: tele replaced with wired toco Datetime: 06/24/2019 18:25 ASSESSMENT A Monitor Mode: Telemetry FHR Baseline Rate : 90 FHR Baseline Changes: Bradycardia Datetime: 06/24/2019 18:22 UTERINE ACTIVITY Monitor Mode: External Frequency (min): 2-4 Quality: Strong Duration (sec): 60-70 Pattern: Normal: <= 5 Contractions in 10 Minutes Resting Tone (Palpate): Relaxed Monitor Interventions for FHR: Ultrasound Adjusted Accelerations: Prolonged Datetime: 06/24/2019 18:20 Effacement (%): 100 Station: 1 Exam by: rk mars rn Vaginal Bleeding: Normal Show Cervix, Consistency: Soft Cervix, Position: Anterior Datetime: 06/24/2019 18:19 PATIENT CARE IV/Blood Work: IV Bolus Started Datetime: 06/24/2019 18:17 Oxygen Amount (LPM): 10 Oxygen Method: Non-Rebreather Patient Care Comments: charge nurse called into room Datetime: 06/24/2019 18:12 Variability: Moderate 6-25 bpm Category: Category I Datetime: 06/24/2019 18:04 Epidural Procedure Other: Single Dose Anesthesia Level Check: T12 Anesthesia Comments: lidocaine 1% 5cc by louis aube parent aide Datetime: 06/24/2019 17:53 Respirations: 16 Temperature (C): 36.7 Datetime: 06/24/2019 17:43 Epidural Procedure: Test Dose Datetime: 06/24/2019 17:28 PROCEDURE TIME OUT Procedure Verify: Correct Patient Identity; Accurate Procedure Consent Form; Agreement on Procedure to be Done; Correct Patient Position; Addressed Need to Administer Antibiotics or Fluids for Irrigat ion; Safety Precautions Based on Patient History or Medication Use ANESTHESIA Epidural Positioning: Sitting Datetime: 06/24/2019 17:23 I/O Interventions: Up to BR Datetime: 06/24/2019 16:54 PAIN Pain Scale: 3 Pain Coping: Talking Through Contractions Pain Assessment Comments: with ctx Comfort Measures: Breathing/Relaxation Datetime: 06/24/2019 16:16 Membrane Status: Ruptured Membranes Rupture Method: Artificial Amniotic Fluid Color: Clear Amniotic Fluid Amount: Small Datetime: 06/24/2019 15:04 MEDICATIONS Cervical Ripening Agents: Cytotec @ Medication Comments: miso 50mcg given bc Datetime: 06/24/2019 14:52 Pain Presence: None/Denies Pain Type: N/A MATERNAL ASSESSMENT Level of Consciousness: Fully Conscious DTR's/Clonus: DTRs 2+; No Clonus Headache: Denies Breath Sounds, Left: Clear and Equal Breath Sounds, Right: Clear and Equal Nausea/Vomiting: Denies RUQ Epigastric Pain: Denies Datetime: 06/24/2019 14:11 Stage of : Labor
--- NOTE | 2019-06-25 20:06 | DISCHARGE SUMMARY ---
Physician: NATALIA Sainz DATE OF ADMISSION: 06/24/2019 DATE OF DISCHARGE: 06/25/2019 DIAGNOSES ON ADMISSION 1. A 28-year-old G4, P1-1-1-2 at 39 and 4 weeks' gestation. 2. Elective induction of labor. 3. Group B Streptococcus negative. DIAGNOSES ON DISCHARGE 1. A 28-year-old G4, P2-1-1-2, status post spontaneous vaginal delivery on 06/24/2019. 2. Normal recovery. HISTORY OF PRESENT ILLNESS: She is a patient of [facility] who presented on 06/24/2019 for elective induction of labor. She received one dose of 50 mcg buccal misoprostol for preinduction cervical ripening. AROM occurred at 1615, and there was noted to be a moderate amount of clear fluid. Epidural placed per maternal request. She progressed to spontaneously deliver a viable male on 06/24/2019 at 1837. EBL 250 mL. The perineum, vagina, and cervix were inspected and found to be intact. Apgars were 7 and 9 at one and five minutes, respectively. She has been doing well in her course. She is ambulating and tolerating a regular diet. She is urinating without difficulty, and her lochia is normal. Her pain is well controlled with oral medications. She will be discharged home today on day #1 with instructions to continue her vitamin while , and to continue ibuprofen and Tylenol [id number] as needed for pain management. She intends to follow up with myself at [facility] in 3 weeks for routine visit or sooner if needed. She has been given precautions to call if she has any worsening fevers, chills, abdominal pain, increased bleeding, or foul-smelling vaginal lochia. TD: 06/25/2019 17:38 BASIA
== END 2019-06-25 19:00 | disposition home or self-care (01) | DRG 807 ==
LOC: WFO 13:52 → FBP 13:55 → WFO 14:00 → FBP 14:01
PROVIDERS: ADMIT Nurse Practitioner Obstetrics & Gynecology; ATTEND Nurse Practitioner Obstetrics & Gynecology
PROC: 10E0XZZ Delivery of Products of Conception, External Approach (ICD-10-PCS; principal; 2019-06-24)
PROC: 10907ZC Drainage of Amniotic Fluid, Therapeutic from Products of Conception, Via Natural or Artificial Opening (ICD-10-PCS; 2019-06-24)
DX: O76 Abnormality in fetal heart rate and rhythm complicating labor and delivery (principal); Z37.0 Single live birth; Z3A.39 39 weeks gestation of pregnancy
CPT/HCPCS: 85025; A9270; J7120

== ENCOUNTER 2023-09-01 16:09 | Emergency (ER) | payer OTHER ==
[2023-09-01 16:29] VITALS: BP 111/69; O2SAT 100
[2023-09-01 16:39] LABS: BASOPHILS % (AUTO) 0.4 %; EOSINOPHILS # (AUTO) 0.1 10^3/uL (0.0-0.7); EOSINOPHILS % (AUTO) 2.1 %; HCT - HEMATOCRIT 37.5 % (37.0-47.0); HGB - HEMOGLOBIN 12.4 g/dL (12.0-16.0); LYMPHOCYTES # (AUTO) 1.8 10^3/uL (1.5-3.5); LYMPHOCYTES % (AUTO) 37.1 %; MEAN CORPUSCULAR HEMOGLOBIN 29.4 pg (27.0-31.0); MEAN CORPUSCULAR HGB CONC 33.1 g/dL (32.0-36.0); MEAN CORPUSCULAR VOLUME 88.9 fL (81.0-99.0); MEAN PLATELET VOLUME 9.7 fL (7.9-10.8); MONOCYTES # (AUTO) 0.3 10^3/uL (0.0-1.0); MONOCYTES % (AUTO) 6.4 %; NEUTROPHILS # (AUTO) 2.6 10^3/uL (1.5-6.6); PLT - PLATELET COUNT 225 10^3/uL (130-450); RED BLOOD COUNT 4.22 10^6/uL (4.20-5.40); WHITE BLOOD COUNT 4.9 x10^3/uL (4.8-10.8)
[2023-09-01 16:48] LABS: BILIRUBIN,URINE NEGATIVE (NEGATIVE); GLUCOSE, URINE (UA) NEGATIVE (NEGATIVE); KETONES,URINE (UA) NEGATIVE (NEGATIVE); LEUKOCYTE ESTERASE, URINE NEGATIVE (NEGATIVE); NITRITE,URINE NEGATIVE (NEGATIVE); OCCULT BLOOD,URINE NEGATIVE (NEGATIVE); PROTEIN,URINE NEGATIVE (NEGATIVE); UROBILINOGEN,URINE 0.2 (NORMAL) E.U./dL (NORMAL)
[2023-09-01 16:50] LABS: CLARITY,URINE CLEAR (CLEAR); HCG UR QUAL NEGATIVE
[2023-09-01 16:54] LABS: ALBUMIN 4.2 g/dL (3.2-5.5); ALBUMIN/GLOBULIN RATIO 1.4 (1.0-2.2); BILIRUBIN,TOTAL 0.6 mg/dL (0.2-1.0); CALCIUM 9.3 mg/dL (8.5-10.3); CREATININE 0.7 mg/dL (0.6-1.3); POTASSIUM 3.7 mmol/L (3.5-4.5); TOTAL PROTEIN 7.1 g/dL (6.4-8.9)
--- NOTE | 2023-09-01 17:10 | ED Physician Documentation ---
History of Present Illness - Stated complaint Stated Complaint: NAUSEA,BODY ACHES - Chief complaint Chief Complaint: Abd Pain - History obtained from History obtained from: Patient - Additonal information Additional information: 32-year-old female presents feeling rundown, having body aches, general malaise for several weeks. Patient states that she had bariatric surgery in October 2022 and endorses that she has not been compliant with taking her vitamins and supplements the way that her bariatric surgeon advised her to. She also missed her 6-month follow-up appointment and feels that this is contributing to her symptoms. She states she tried to come to the emergency department for vitamin level checks and possible vitamin infusion. Review of Systems Constitutional: reports: Myalgias, Fatigue. denies: Fever, Chills GI: reports: Nausea. denies: Abdominal Pain, Vomiting, Constipation, Diarrhea : denies: Dysuria, Frequency, Hesitancy Neurologic: denies: Generalized weakness, Focal weakness, Numbness, Syncope, Headache, Head injury, LOC PD PAST MEDICAL HISTORY - Past Surgical History Past Surgical History: No - Present Medications Home Medications: Ambulatory Orders Medication Instructions Recorded Confirmed Multivitamin [Multivitamins] 1 tab DAILY 12/14/14 12/21/14 Hyoscyamine Sulfate [Levsin-Sl] 0.125 mg SL Q6H PRN #10 tab.subl 07/08/16 - Allergies Allergies/Adverse Reactions: Allergies Allergy/AdvReac Type Severity Reaction Status Date / Time No Known Drug Allergies Allergy Verified 12/21/14 18:36 - Social History Does the pt smoke?: No Smoking Status: Never smoker Does the pt drink ETOH?: No Does the pt have substance abuse?: No PD ED PE NORMAL - Vitals Vital signs reviewed: Yes - General General: Alert and oriented X 3, No acute distress, Well developed/nourished - HEENT HEENT: Atraumatic - Neck Neck: Supple, no meningeal sign - Cardiac Cardiac: RRR, Strong equal pulses - Respiratory Respiratory: No respiratory distress - Abdomen Abdomen: Soft, Non tender, Non distended - Extremities Extremities: No deformity, No tenderness to palpate, Normal ROM s pain, No edema - Neuro Neuro: Alert and oriented X 3, glass bead maker 2-12 intact, No motor deficit, Normal speech - Psych Psych: Normal mood, Normal affect Results - Vitals Vitals: Vital Signs - 24 hr 09/01/23 16:24 Temperature 36.2 C L Heart Rate 85 Respiratory 18 Rate Blood Pressure 111/69 O2 Saturation 100 Oxygen O2 Source Room air - Labs Labs: Laboratory Tests 09/01/23 09/01/23 09/01/23 16:34 16:34 16:40 WBC 4.9 RBC 4.22 Hgb 12.4 Hct 37.5 MCV 88.9 MCH 29.4 MCHC 33.1 RDW 12.0 Plt Count 225 MPV 9.7 Neut # (Auto) 2.6 Lymph # (Auto) 1.8 [place] # (Auto) 0.3 Eos # (Auto) 0.1 Baso # (Auto) 0.0 Absolute Nucleated RBC 0.00 Nucleated RBC % 0.0 Sodium 138 Potassium 3.7 Chloride 104 Carbon Dioxide 27 Anion Gap 7.0 BUN 12 Creatinine 0.7 Estimated GFR (MDRD) 97 Glucose 91 Calcium 9.3 Total Bilirubin 0.6 AST 18 ALT 23 Alkaline Phosphatase 50 Total Protein 7.1 Albumin 4.2 Globulin 2.9 Albumin/Globulin Ratio 1.4 Lipase 60 Urine Color YELLOW Urine Clarity CLEAR Urine pH 6.0 Ur Specific [place] 1.025 Urine Protein NEGATIVE Urine Glucose (UA) NEGATIVE Urine Ketones NEGATIVE Urine Occult Blood NEGATIVE Urine Nitrite NEGATIVE Urine Bilirubin NEGATIVE Urine Urobilinogen 0.2 (NORMAL) Ur Leukocyte Esterase NEGATIVE Ur Microscopic Review NOT INDICATED Urine Culture Comments NOT INDICATED Urine HCG, Qual NEGATIVE PD Medical Decision Making - ED course Complexity details: reviewed results, re-evaluated patient, considered differential, d/w patient ED course: several weeks of symptoms. Unable to measure or administer vitamin infusions in ED. Basic labs unremarkable, no evidence of B12 deficiency anemia. Patient will call her surgeon tomorrow to try to arrange follow up. Departure - Departure Disposition: 01 Home, Self Care Clinical Impression: Malaise Condition: Stable Instructions: Vitamin B-12 and Folate Comments: FOLLOW UP WITH YOUR BYPASS SURGEON. TAKE YOUR VITAMINS AND MINERALS PRESCRIBED AND BE SURE TO EAT A WELL-BALANCED AND HEALTHY DIET Forms: PCP List Discharge Date/Time: 09/01/23 17:25
== END 2023-09-01 17:25 | disposition home or self-care (01) ==
LOC: ED 16:09
DX: R53.81 Other malaise (principal); Z98.84 Bariatric surgery status; Z91.119 Patient's noncompliance with dietary regimen due to unspecified reason
CPT/HCPCS: 36415; 80053; 81001; 81003; 81025; 83690; 85025; 87086; 99283